=== PATIENT | female | born 1930 | race Caucasian/White ===

== ENCOUNTER → 2016-07-05 | Outpatient (CLI) | payer OTHER ==
[~2016-07-05] MED LIST: ALLOPURINOL100 MG PO; AMPICILLIN500 MG PO; ASPIRIN81 M1 PO; CENTRUM COMPLE1 EACH PO; COZAAR25 M1 PO; FISH OIL500 M1 PO; LEVOFLOXACIN500 MG PO; LEVOTHYROXIN0.025 MG PO; LIPITOR10 MG PO; LOSARTAN POTASS50 M1 PO; NORVASC2.5 MG PO; Percocet 325 MG1 TAB PO; VICODIN 5/500 505 MG PO; XANAX0.25 MG PO
== END | disposition home or self-care (01) ==
LOC: RAD 03:05
DX: M1A.0710 Idiopathic chronic gout, right ankle and foot, without tophus (tophi) (principal); Z47.1 Aftercare following joint replacement surgery; M19.071 Primary osteoarthritis, right ankle and foot

== ENCOUNTER → 2017-01-03 | Outpatient (CLI) | payer OTHER | END | disposition home or self-care (01) | LOC: RAD 03:50 | DX: Z13.820 Encounter for screening for osteoporosis (principal); E21.3 Hyperparathyroidism, unspecified; M19.90 Unspecified osteoarthritis, unspecified site ==